=== PATIENT | male | born 1935 | race African-American/Black ===

== ENCOUNTER 2022-02-13 12:40 | Emergency (ER) | payer MEDICARE, OTHER ==
[~2022-02-13] VITALS: Ht 175.3 cm; Wt 95.5 kg
[2022-02-13 14:36] VITALS: BP 153/63
== END 2022-02-13 14:39 | disposition home or self-care (01) ==
LOC: EMS 12:49
DX: L98.8 Other specified disorders of the skin and subcutaneous tissue (principal); Z12.83 Encounter for screening for malignant neoplasm of skin; I10 Essential (primary) hypertension; Z90.49 Acquired absence of other specified parts of digestive tract; Z86.718 Personal history of other venous thrombosis and embolism
CPT/HCPCS: 99281; Z7502